=== PATIENT | female | born 1955 | race Caucasian/White ===

== ENCOUNTER 2017-08-27 12:20 | Outpatient (CLI) | payer BC ==
--- NOTE | 2017-08-27 12:36 | RAD ---
CHEST 2 VIEWS: HISTORY: Dyspnea. COMPARISON: 05/24/17. FINDINGS: Cardiac silhouette and pulmonary vasculature are unremarkable. Mediastinum is midline. Lungs are hy perinflated. There is no confluent airspace consolidation, pneumothorax, or pleural fluid evident. IMPRESSION: Chronic obstructive pulmonary disease. POS: [facility]
== END 2017-08-27 12:21 | disposition home or self-care (01) ==
LOC: RAD 12:20
PROVIDERS: ATTEND Internal Medicine Pulmonary Disease
DX: R06.00 Dyspnea, unspecified (principal); J44.9 Chronic obstructive pulmonary disease, unspecified
CPT/HCPCS: 71020

== ENCOUNTER 2018-09-19 09:13 | Outpatient (CLI) | payer BC ==
--- NOTE | 2018-09-19 14:28 | ULT ---
LIMITED RIGHT BREAST ULTRASOUND: DATE: 09/19/2018. PROVIDED CLINICAL HISTORY: Focal right breast pain. FINDINGS: Limited sonographic interrogation of the right breast is performed in the region of patient pain. Th e sonographic appearance of the breast parenchyma in this region appears normal. IMPRESSION: BIRADS category 1 - negative. Negative imaging findings should not preclude further evaluation of th e clinically suspicious abnormality. The patient is referred back to her clinician. POS: [facility]
== END 2018-09-19 09:14 | disposition home or self-care (01) ==
LOC: BICMAMMO 09:13
PROVIDERS: ATTEND Nurse Practitioner Family
DX: N60.19 Diffuse cystic mastopathy of unspecified breast (principal); Z80.3 Family history of malignant neoplasm of breast
CPT/HCPCS: 77066; G0279

== ENCOUNTER 2018-10-27 14:58 | Outpatient (CLI) | payer BC ==
--- NOTE | 2018-10-27 16:05 | RAD ---
TWO VIEW CHEST: Comparison: 08-27-17 Indication: Dyspnea. FINDINGS: Lungs are mildly hyperinflated with interstitial prominence. Cardiac silhouette is stable. Chest is s imilar in appearance to 08-27-17 exam. IMPRESSION: 1. COPD. 2. No focal consolidation. POS: [facility]
== END 2018-10-27 14:59 | disposition home or self-care (01) ==
LOC: RAD 14:58
PROVIDERS: ATTEND Internal Medicine Pulmonary Disease
DX: R06.00 Dyspnea, unspecified (principal); J44.9 Chronic obstructive pulmonary disease, unspecified
CPT/HCPCS: 71046

== ENCOUNTER 2018-11-23 13:17 | Outpatient (CLI) | payer BC ==
--- NOTE | 2018-11-23 14:33 | BD ---
DEXA BONE DENSITY STUDY: INDICATIONS: Asymptomatic post procedure ovarian failure, bone mineral screening evaluation, postmenopausal female . FINDINGS: LUMBAR SPINE BMD (g/cm2) T-SCORE L1 0.783 -1.9 L2 0.759 -2.4 L3 0.801 -2.6 L4 0.673 -0.5 TOTAL 0.753 -2.7 NECK 0.574 -2.5 TOTAL 0.774 -1.4 IMPRESSION: T-scores indicate osteoporosis, which places the patient at significantly increased risk for fracture . POS: [facility]
== END 2018-11-23 13:18 | disposition home or self-care (01) ==
LOC: BICMAMMO 13:17
PROVIDERS: ATTEND Family Medicine
DX: Z13.820 Encounter for screening for osteoporosis (principal); E89.40 Asymptomatic postprocedural ovarian failure; M81.0 Age-related osteoporosis without current pathological fracture
CPT/HCPCS: 77080

== ENCOUNTER 2019-07-13 13:41 | Outpatient (CLI) | payer BC ==
--- NOTE | 2019-07-13 14:46 | MRI ---
EXAM: MRI lumbar spine without contrast HISTORY: Low back pain that radiates into the left hip for 15 years COMPARISON: 01/08/2010 TECHNIQUE: Multiple planar multisequence MR images were obtained of the lumbar spine without contrast . FINDINGS: The vertebral bodies and intervertebral discs demonstrate normal height and alignment without fractur e or subluxation. Generalized disc desiccation is seen. There is a small cyst in the superior pole the right kidney. The other prevertebral and paraspinal so ft tissues are unremarkable. No marrow signal abnormality is present. The conus medullaris terminates normally at T12/L1. T12/L1: No significant posterior bulge or protrusion. No posterior facet arthrosis. No central payal l stenosis. No neural foraminal stenosis L1/2: Minimal generalized concentric disc bulge. No posterior facet arthrosis. No central canal leoncio nosis. No neural foraminal stenosis L2/3: No significant posterior bulge or protrusion. No posterior facet arthrosis. No central canal stenosis. No neural foraminal stenosis L3/4: No significant posterior bulge or protrusion. No posterior facet arthrosis. No central canal stenosis. No neural foraminal stenosis L4/5: Small generalized disc bulge. No posterior facet arthrosis. Mild central canal stenosis. Mil d bilateral neural foraminal stenosis L5/S1: A small generalized concentric disc bulge is associated with a superimposed small central prot rusion. No posterior facet arthrosis. Mild central canal stenosis. Moderate bilateral neural foraminal stenosis IMPRESSION: Mild degenerative changes of the lumbar spine as above.
== END 2019-07-13 13:42 | disposition home or self-care (01) ==
LOC: BICMRI 13:41
PROVIDERS: ATTEND Psychiatry & Neurology Neurology
DX: M51.27 Other intervertebral disc displacement, lumbosacral region (principal); M47.816 Spondylosis without myelopathy or radiculopathy, lumbar region
CPT/HCPCS: 72148

== ENCOUNTER 2019-09-11 12:04 | Outpatient (CLI) | payer BC ==
--- NOTE | 2019-09-11 14:52 | CT ---
CT chest noncontrast low-dose pulmonary scan HISTORY: COPD. Current smoker. Lung nodule. COMPARISON: 05/24/2017. FINDINGS: Lungs remain hyperinflated. Parenchymal scarring remains most pronounced at the right apex in the left lower lobe. Scattered small peripheral calcified granulomata are apparent, including the subpleural nodule within the lateral aspect of the superior segment left lower lobe, where the abnormality was demonstrated on the previous exam. It is now calcified. A 0.4 cm subpleural nodule is present within the anterior aspect of the right middle lobe. A 0.3 cm s ubpleural nodules also present within the far lateral aspect of the right middle lobe. Additional smaller subpleural nodules are present within each lung. No pleural fluid or pneumothorax. Lack of contrast limits evaluation of the soft tissues. There is calcification within the arterial st ructures. AP diameter of the ascending aorta is upper limits of normal at 4.0 cm. IMPRESSION: Lung RADS category 2. Benign findings. Suggest routine screening. Healed granulomatous disease of the chest and abdomen. Atherosclerosis.
== END 2019-09-11 12:05 | disposition home or self-care (01) ==
LOC: CT 12:04
PROVIDERS: ATTEND Internal Medicine Pulmonary Disease
DX: J44.9 Chronic obstructive pulmonary disease, unspecified (principal); F17.210 Nicotine dependence, cigarettes, uncomplicated; I70.0 Atherosclerosis of aorta
CPT/HCPCS: G0297

== ENCOUNTER 2020-04-03 13:26 | Outpatient (CLI) | payer BC ==
--- NOTE | 2020-04-03 14:19 | MMO ---
Bilateral MAMMO Bilat Diag [facility]. CLINICAL HISTORY: Patient is 64 years old and is seen for diagnostic exam. The patient has the following family history of breast cancer: mother, at age 74. The patient has no personal history of cancer. VIEWS: The views performed were: bilateral craniocaudal with tomosynthesis; bilateral mediolateral oblique with tomosynthesis; and bilateral mediolateral with tomosynthesis. FILMS COMPARED: The present examination has been compared to prior imaging studies performed at [facility] on 11/13/2015, 09/19/2018 and 04/03/2020, and [place] [facility]. This study has been interpreted with the assistance of computer-aided detection. MAMMOGRAM FINDINGS: The breasts are heterogeneously dense, which could obscure a lesion on mammography. There are no suspicious masses, suspicious calcifications, or new areas of architectural distortion. There are no mammographic or sonographic abnormalities to explain the patient's breast pain. The patient is referred back to her clinician. Negative imaging findings should not preclude biopsy if clinical findings are suspicious. IMPRESSION: THERE ARE NO MAMMOGRAPHIC OR SONOGRAPHIC ABNORMALITIES TO EXPLAIN THE PATIENT'S BREAST PAIN. THE PATIENT IS REFERRED BACK TO HER CLINICIAN. NEGATIVE IMAGING FINDINGS SHOULD NOT PRECLUDE BIOPSY IF CLINICAL FINDINGS ARE SUSPICIOUS. THE RESULTS OF THIS EXAM WERE SENT TO THE PATIENT. ACR BI-RADS Category 1 - Negative MAMMOGRAPHY NOTE: 1. A negative mammogram report should not delay a biopsy if a dominant of clinically suspicious mass is present. 2. Approximately 10% to 15% of breast cancers are not detected by mammography. 3. Adenosis and dense breasts may obscure an underlying neoplasm. Reported by: ARLYN GUARDADO MD Electonically Signed: [id number]
--- NOTE | 2020-04-03 14:22 | ULT ---
EXAM: US Breast Limited Lt PROVIDED CLINICAL HISTORY: Focal left breast pain COMPARISON: None FINDINGS: Limited sonographic interrogation was performed of the left breast in the region of patient pain. The sonographic appearance of the breast tissue in this region is normal. IMPRESSION: No sonographic abnormality is evident in the region of clinical concern. Negative imaging findings sh ould not preclude further evaluation of a clinically suspicious finding. Patient is referred back to her clinician.
--- NOTE | 2020-04-03 14:35 | BD ---
EXAM: DEXA bone density examination HISTORY: Postmenopausal osteoporosis screening COMPARISON: November 23, 2018 and September 03, 2009 FINDINGS: L1--bone mineral density 0.752 g/sq cm; T score -2.2. Z score -0.7 L2--bone mineral density 0.760 g/sq cm; T score -2.4; Z score -0.8 L3--bone mineral density 0.816 g/sq cm; T score -2.4; Z score -0.7 L4--bone mineral density 0.727 g/sq cm; T score -3.0, Z score -1.2 Total L1-L4--bone mineral density 0.764 g/sq cm; T score -2.6, Z score -0.9 Left femoral neck--bone mineral density0.539; T score -2.8, Z score -1.3 Total proximal left femur--bone mineral density 0.749; T score -1.6, Z score -0.4 The bone mineral density of the left total hip region has declined 9.1% from the baseline examination ; however, the examination in 2008 was performed on a different scan type or with different analysis methods. The bone mineral density of the left total hip region has declined 3.2% from the pr evious dated November 23, 2018. IMPRESSION: Based on the WHO criteria, the patient's bone mineral density is consideredOsteoporotic. The patient is at high risk for fracture.
== END 2020-04-03 13:27 | disposition home or self-care (01) ==
LOC: BICMAMMO 13:26
PROVIDERS: ATTEND Family Medicine
DX: Z13.820 Encounter for screening for osteoporosis (principal); N64.4 Mastodynia; E89.40 Asymptomatic postprocedural ovarian failure; M81.0 Age-related osteoporosis without current pathological fracture
CPT/HCPCS: 77066; 77080; G0279

== ENCOUNTER 2020-09-17 13:03 | Outpatient (CLI) | payer BC ==
--- NOTE | 2020-09-17 14:25 | RAD ---
PA AND LATERAL CHEST: 09/17/20 HISTORY: Dyspnea. COMPARISON: 03/18/19 exam. Heart size within normal limits. There are atherosclerotic changes of the aorta. There is some chron ic appearing lung change without focal infiltrates flattening to the hemidiaphragms. IMPRESSION: Chronic appearing lung change. POS: [facility]
== END 2020-09-17 13:04 | disposition home or self-care (01) ==
LOC: BICRAD 13:03
PROVIDERS: ATTEND Internal Medicine Pulmonary Disease
DX: R06.00 Dyspnea, unspecified (principal); I70.0 Atherosclerosis of aorta
CPT/HCPCS: 71046

== ENCOUNTER 2021-08-06 11:57 | Outpatient (CLI) | payer MEDICARE, BC | END 2021-08-06 11:58 | disposition home or self-care (01) | LOC: BICRAD 11:57 | PROVIDERS: ATTEND Internal Medicine Pulmonary Disease | DX: R06.00 Dyspnea, unspecified (principal) | CPT/HCPCS: 71046 ==

== ENCOUNTER 2021-10-31 13:37 | Emergency (ER) | payer MEDICARE, BC ==
[2021-10-31 14:14] LABS: Hemoglobin 16.1 g/dL (12.0-16.0); Mean Corpuscular HGB CONC 32.5 g/dL (32.0-36.0); Mean Corpuscular Hemoglobin 31.2 pg (27.0-31.0); Mean Corpuscular Volume 95.9 fL (78.0-98.0); Mean Platelet Volume 7.8 fL (7.4-10.4); Platelet Count 285 thou/uL (130-400); RBC Distribution Width 12.9 % (11.5-14.5); Red Blood Cell (RBC) Count 5.17 mill/uL (4.20-5.40)
[2021-10-31 14:34] LABS: ALT (SGPT) 10 U/L (8-55); AST (SGOT) 16 U/L (5-34); Albumin 4.1 g/dL (3.4-4.8); Alkaline Phosphatase 99 U/L (40-110); Anion Gap 14 mmol/L (10-20); BUN (Urea Nitrogen) 13 mg/dL (9.8-20.1); Bilirubin, Total 0.5 mg/dL (0.2-1.2); Calc. Creatinine Clearance 0 mL/min (70-130); Calcium 9.6 mg/dL (7.8-10.44); Carbon Dioxide 24 mmol/L (23-31); Chloride 103 mmol/L (98-107); Globulin 2.8 g/dL (2.4-3.5); Glucose 98 mg/dL (80-115); Lipase 26 U/L (8-78); Potassium 4.2 mmol/L (3.5-5.1); Protein, Total 6.9 g/dL (5.8-8.1); Sodium 137 mmol/L (136-145)
[2021-10-31 14:39] LABS: Band 2 % (5-11); Eosinophils 6 % (0-10); Lymphocytes 39 % (21-51); MDiff Complete? YES; Monocytes 7 % (0-10); Neutrophil 40 % (42-75); Platelet Morphology Comment Appears Adequate; RBC Morphology Normal; Reactive Lymphocytes 6 % (0-10)
[2021-10-31] MEDS ORDERED: Cyclobenzaprine 10 MG TAB ONE (15:21)
[2021-10-31] MEDS ORDERED: Ketorolac Tromethamine 30 MG/ML VIAL ONE (15:21)
[2021-10-31 15:47] LABS: Bilirubin Negative (Negative); Blood, Urine Negative (Negative); Glucose, Urine (Dipstick) Negative (Negative); Ketone, Urine Negative (Negative); Leukocyte Negative (Negative); Nitrite Negative (Negative); Protein, Urine (Dipstick) Negative (Neg-Trace); Urobilinogen 0.2 mg/dL (Less than 2); pH, Urine 7.5 (5.0-9.0)
[2021-10-31 15:54] LABS: Clarity Clear (Clear); RBC/HPF 0-3 HPF (0-3); Squamous Epithelial 0-3 HPF (0-3); WBC/HPF 0-3 HPF (0-3)
== END 2021-10-31 16:53 | disposition home or self-care (01) ==
LOC: ERS 13:37
DX: M62.830 Muscle spasm of back (principal); R33.9 Retention of urine, unspecified; K21.9 Gastro-esophageal reflux disease without esophagitis; J44.9 Chronic obstructive pulmonary disease, unspecified; Z86.73 Personal history of transient ischemic attack (TIA), and cerebral infarction without residual deficits; F17.210 Nicotine dependence, cigarettes, uncomplicated; Z79.899 Other long term (current) drug therapy
CPT/HCPCS: 36415; 51798; 72100; 80053; 83690; 85025; 96372; J1885

== ENCOUNTER 2022-02-25 10:08 | Outpatient (CLI) | payer MEDICARE, BC | END 2022-02-25 10:09 | disposition home or self-care (01) | LOC: BICMAMMO 10:08 | PROVIDERS: ATTEND Internal Medicine Rheumatology | DX: M81.0 Age-related osteoporosis without current pathological fracture (principal); M85.851 Other specified disorders of bone density and structure, right thigh; M85.852 Other specified disorders of bone density and structure, left thigh | CPT/HCPCS: 77080 ==

== ENCOUNTER 2022-04-14 13:47 | Outpatient (CLI) | payer MEDICARE, BC | END 2022-04-14 13:48 | disposition home or self-care (01) | LOC: TBSIIMAG 13:47 | PROVIDERS: ATTEND Specialist | DX: S22.000A Wedge compression fracture of unspecified thoracic vertebra, initial encounter for closed fracture (principal); S32.000A Wedge compression fracture of unspecified lumbar vertebra, initial encounter for closed fracture | CPT/HCPCS: 72146; 72148 ==

== ENCOUNTER 2022-09-01 14:33 | Outpatient (CLI) | payer MEDICARE, BC | END 2022-09-01 14:34 | disposition home or self-care (01) | LOC: RAD 14:33 | PROVIDERS: ATTEND Internal Medicine | DX: R06.00 Dyspnea, unspecified (principal) | CPT/HCPCS: 71046 ==

== ENCOUNTER 2023-08-06 10:33 | Outpatient (CLI) | payer MEDICARE | END 2023-08-06 10:34 | disposition home or self-care (01) | LOC: BICCT 10:33 | PROVIDERS: ATTEND Internal Medicine | DX: Z12.2 Encounter for screening for malignant neoplasm of respiratory organs (principal); J44.9 Chronic obstructive pulmonary disease, unspecified; F17.218 Nicotine dependence, cigarettes, with other nicotine-induced disorders; R91.8 Other nonspecific abnormal finding of lung field | CPT/HCPCS: 71271 ==

== ENCOUNTER 2023-08-30 12:08 | Outpatient (CLI) | payer MEDICARE | END 2023-08-30 12:09 | disposition home or self-care (01) | LOC: RAD 12:08 | PROVIDERS: ATTEND Internal Medicine | DX: R06.00 Dyspnea, unspecified (principal) | CPT/HCPCS: 71046 ==

== ENCOUNTER 2023-08-31 06:58 | Outpatient (CLI) | payer MEDICARE ==
[2023-08-31 08:52] LABS: Bilirubin Neg (Negative); Blood, Urine 10 (Negative); Clarity Slightly Cloudy (Clear); Glucose, Urine (Dipstick) Normal (Negative); Ketone, Urine Negative (Negative); Leukocyte 500 (Negative); Nitrite Positive (Negative); Protein, Urine (Dipstick) 15 mg/dl (Neg-Trace); Urobilinogen Normal mg/dL (Less than 2)
[2023-08-31 08:54] LABS: Hematocrit 50.4 % (34.9-44.5); Mean Corpuscular HGB CONC 33.7 g/dL (32.0-36.0); Mean Platelet Volume 10.5 fl (7.4-10.4); Platelet Count 265 10x3/uL (150-450); RBC Distribution Width 14.6 % (11.5-14.5); Red Blood Cell (RBC) Count 5.48 10x6/uL (3.90-5.03); White Blood Cell (WBC) Count 8.5 10x3/uL (3.5-10.5)
[2023-08-31 09:03] LABS: Bacteria/HPF 4+ HPF (None Seen); RBC/HPF 0-3 HPF (0-3); WBC/HPF Greater than 50 HPF (0-3)
[2023-08-31 09:16] LABS: INR-International Normal Ratio 0.9; PTT 23.9 sec (22.0-33.0); Prothrombin Time 9.6 sec (9.5-12.1)
[2023-08-31 09:57] LABS: Anion Gap 15 mmol/L (10-20); BUN (Urea Nitrogen) 13 mg/dL (9.8-20.1); Calc. Creatinine Clearance 0 mL/min (70-130); Calcium 9.2 mg/dL (7.8-10.44); Carbon Dioxide 25 mmol/L (23-31); Chloride 102 mmol/L (98-107); Estimated GFR 76; Glucose 78 mg/dL (80-115); Sodium 138 mmol/L (136-145)
== END 2023-08-31 06:59 | disposition home or self-care (01) ==
LOC: LABBT 06:58
PROVIDERS: ATTEND Urology
DX: Z01.818 Encounter for other preprocedural examination (principal); J43.9 Emphysema, unspecified; M51.27 Other intervertebral disc displacement, lumbosacral region; G63 Polyneuropathy in diseases classified elsewhere; F17.210 Nicotine dependence, cigarettes, uncomplicated; N39.41 Urge incontinence; N39.3 Stress incontinence (female) (male)
CPT/HCPCS: 80048; 81001; 85027; 85610; 85730; 87077; 87086; 87186; 93005; 93010

== ENCOUNTER 2023-09-09 05:37 | Day surgery (SDC) | payer MEDICARE ==
[2023-08-31 07:45] VITALS: BMI 25.8
[2023-09-09] MEDS ORDERED: PROPOFOL 20 ML ONE (07:00)
[2023-09-09] MEDS ORDERED: fentaNYL PF 100 MCG/2 ML SYRINGE ONE (07:00)
[2023-09-09] MEDS ORDERED: Dexmedetomidine 200 MCG/2 ML VIAL ONE (07:00)
[2023-09-09] MEDS ORDERED: Ondansetron PF 4 MG/2 ML Vial ONE ×2 (07:00→07:54)
[2023-09-09] MEDS ORDERED: Dexamethasone 4 mg/ml Vial ONE (07:00)
[2023-09-09] MEDS ORDERED: Vancomycin 1 GM VIAL ONE (07:01)
[2023-09-09] MEDS ORDERED: Bupivacaine 0.25% HCL 30 ML VIAL ONE (07:01)
[2023-09-09] MEDS ORDERED: Rocuronium Bromide 10 MG/ML (10ML VIAL) ONE (07:01)
[2023-09-09] MEDS ORDERED: Lidocaine 1% PF 5 ML VIAL ONE ×2 (07:01→07:54)
[2023-09-09] MEDS ORDERED: Sodium Chloride 0.9% 100 ML ONE ×2 (07:02→07:30)
[2023-09-09] MEDS ORDERED: CEFAZOLIN 1 GM VIAL ONE (07:29)
[2023-09-09] MEDS ORDERED: fentaNYL 50 mcg/mL 1 mL Vial ONE ×4 (07:29→10:07)
[2023-09-09] MEDS ORDERED: Dexamethasone 20 MG/5 ML VIAL ONE (07:54)
[2023-09-09] MEDS ORDERED: PROPOFOL 200 MG/20 ML VIAL ONE (07:54)
[2023-09-09] MEDS ORDERED: PHENYLEPHRINE-NS 100 MCG/ML 10 ML SYRINGE ONE (07:54)
[2023-09-09] MEDS ORDERED: ePHEDrine Sulfate 50 MG/10 ML VIAL ONE ×2 (07:54→08:07)
== END 2023-09-09 11:50 | disposition home or self-care (01) ==
LOC: SDC 05:37
PROVIDERS: ATTEND Urology
PROC: 0JH63BZ Insertion of Single Array Stimulator Generator into Chest Subcutaneous Tissue and Fascia, Percutaneous Approach (ICD-10-PCS; principal; 2023-09-09)
PROC: 01HY3MZ Insertion of Neurostimulator Lead into Peripheral Nerve, Percutaneous Approach (ICD-10-PCS; 2023-09-09)
DX: N32.81 Overactive bladder (principal); I25.10 Atherosclerotic heart disease of native coronary artery without angina pectoris; J44.9 Chronic obstructive pulmonary disease, unspecified; G89.29 Other chronic pain
CPT/HCPCS: 64561; 72220; C1897; J3010; J0690; J1100; J2405; J2704; J3370; J3490; S0020

== ENCOUNTER 2023-09-16 09:47 | Day surgery (SDC) | payer MEDICARE ==
[2023-09-15 14:03] VITALS: BMI 26.4
[2023-09-16] MEDS ORDERED: Sodium Chloride 0.9% 100 ML ONE ×2 (10:35→13:14)
[2023-09-16] MEDS ORDERED: Ampicillin 2 GM VIAL ONE (10:35)
[2023-09-16] MEDS ORDERED: Gentamicin Sulfate 100 MG in Premix 1 BAG IVPB SCH (10:45)
[2023-09-16] MEDS ORDERED: PROPOFOL 20 ML ONE (12:54)
[2023-09-16] MEDS ORDERED: Rocuronium Bromide 10 MG/ML (10ML VIAL) ONE (12:54)
[2023-09-16] MEDS ORDERED: fentaNYL PF 100 MCG/2 ML SYRINGE ONE (12:55)
[2023-09-16] MEDS ORDERED: Lidocaine 1% PF 5 ML VIAL ONE (12:55)
[2023-09-16] MEDS ORDERED: Ondansetron PF 4 MG/2 ML Vial ONE ×2 (13:05→13:42)
[2023-09-16] MEDS ORDERED: Midazolam HCl 2 mg/2 ml Vial ONE (13:10)
[2023-09-16] MEDS ORDERED: CEFAZOLIN 2 GM VIAL ONE (13:14)
== END 2023-09-16 14:50 | disposition home or self-care (01) ==
LOC: SDC 09:47
PROVIDERS: ATTEND Urology
PROC: 01PY0MZ Removal of Neurostimulator Lead from Peripheral Nerve, Open Approach (ICD-10-PCS; principal; 2023-09-16)
DX: N32.81 Overactive bladder (principal); N39.41 Urge incontinence
CPT/HCPCS: J0290; J1580; J2250; J2405; J2704; J3490